=== PATIENT | male | born 2000 | race Caucasian/White ===

== ENCOUNTER 2020-11-28 03:52 | Emergency (ER) | payer MEDICAID ==
[~2020-11-28] VITALS: Ht 188 cm; Wt 88.9 kg
[2020-11-28 04:30] VITALS: BP_SYST 122
[2020-11-28 04:57] VITALS: BP_SYST 122
== END 2020-11-28 04:56 | disposition home or self-care (01) ==
LOC: SED 03:52
DX: U07.1 COVID-19 (principal); R05 Cough
CPT/HCPCS: 99283